=== PATIENT | male | born 1985 | race American Indian/Alaskan Native ===

== ENCOUNTER 2019-11-04 18:37 | Emergency (ER) | payer SELFPAY ==
[~2019-11-04] VITALS: Ht 170.2 cm; Wt 86.2 kg
[2019-11-04 18:43] VITALS: BP 123/66
--- NOTE | 2019-11-04 18:51 | NUR ---
33/F C/O NECK PAIN RADIATING UP TO BASE OF HEAD POSTERIORLY X 10 DAYS. WAKES UP WITH THE PAIN THE MORNING AND PAIN PROGRESSIVELY WORSENS THROUGHOUT THE DAY. DENIES TRAUMA/INJURY, N/V, DIZZINESS, VISUAL CHANGES. HX- DENIES
--- NOTE | 2019-11-04 18:57 | NUR ---
MIK CUEVAS EVALUATING PT AT BEDSIDE
[2019-11-04] MEDS ORDERED: KETOROLAC 60 MG/2 ML VIAL IM ONE (19:00)
--- NOTE | 2019-11-04 19:11 | NUR ---
REPORT TO ANDIE JOHN/NAVEED JOHN. TRANSFER OF CARE AT THIS TIME.
--- NOTE | 2019-11-04 19:11 | NUR ---
RECEIVED REPORT FROM GRISELDA JOHN. CONTINUATION OF CARE.
[2019-11-04 19:45] VITALS: BP 123/66
--- NOTE | 2019-11-04 19:45 | NUR ---
Patient discharged with v/s stable. Written and verbal after care instructions given and explained. Patient alert, oriented and verbalized understanding of instructions. Ambulatory with steady gait. All questions addressed prior to discharge. ID band removed. Patient advised to follow up with PMD. Rx of IBUPROFEN AND FLEXERIL given. Patient educated on indication of medication including possible reaction and side effects. Opportunity to ask questions provided and answered.
== END 2019-11-04 19:45 | disposition home or self-care (01) ==
LOC: MED 18:37
DX: S16.1XXA Strain of muscle, fascia and tendon at neck level, initial encounter (principal); X58.XXXA Exposure to other specified factors, initial encounter; Y93.89 Activity, other specified; Y92.89 Other specified places as the place of occurrence of the external cause; Y99.8 Other external cause status
CPT/HCPCS: 96372; 99283; J1885

== ENCOUNTER 2021-12-02 08:54 | Emergency (ER) | payer MEDICAID ==
--- NOTE | 2021-12-02 09:09 | NUR ---
PATIENT LEFT WITHOUT BEING SEEN BY . NO FURTHER CARE PROVIDED FOR PATIENT.
== END 2021-12-02 09:09 | disposition left against medical advice (07) ==
LOC: MED 08:54
DX: Z53.21 Procedure and treatment not carried out due to patient leaving prior to being seen by health care provider (principal)